=== PATIENT | female | born 1975 | race Caucasian/White ===

== ENCOUNTER 2018-05-06 17:02 | Emergency (ER) | payer SELFPAY ==
[2018-05-06 17:06] VITALS: BP 151/99; PULSE 101; RESP 18; TEMP 36.5; O2SAT 97
--- NOTE | 2018-05-06 17:48 | ED.GENADUL ---
Disposition Clinical Impression: Rash Disposition: HOME Instructions: Acute Rash (ED) Additional Instructions: Your blood glucose level was 150 today. This is slightly elevated and likely related to prednisone. Please be sure to discuss this with your doctor at your next visit. Continue to take prednisone as prescribed. Take benadryl 50mg every 8 hours as needed for itching. Please follow-up with your primary care physician. If rash persists, please follow-up with dermatology. Return to the emergency department immediately for any worsening or new concerning symptoms. Referrals: Eusebia Vaughn MD [Primary Care Provider] - Forms: Work Release Medical Decision Making - Medical Decision Making 18:00 --43-year-old female here with 4 days of itchy rash, migratory now involving thighs bilaterally arms and chest. Rash seemed to respond to steroid injection earlier today. Suspect allergic versus autoimmune. Fingerstick slightly elevated at 150 - likely related to steroid. Current exam rash not consistent with fungal process. Consider syphilis - pt did have std in remote past. Will send rpr. Plan to continue prednisone and Benadryl. History of Present Illness - General Chief complaint: Allergic Stated complaint: PER DEVEN Time Seen by Provider: 05/06/18 17:19 Source: patient, RN notes reviewed Mode of arrival: ambulatory Limitations: no limitations - History of Present Illness Initial comments: 43-year-old female presents with chief complaint of rash. Patient notes that she developed a rash on her buttocks 3 days ago. Rash progressed to her back, arms and thighs over the past few days. Rash is itchy. Rash seemed to start with boils and now more linear. She was seen by her primary care physician yesterday and diagnosed with tinea corporis and start an antifungal cream. Today she returned to her primary care physician with worsening rash. PCP was concerned that she had hives and treated her with Solu-Medrol injection and started her on prednisone. Patient notes rash improved significantly after injection. After few hours rash returned. No known exposures to any new allergens. Of note, patient was swimming in [place] 5 days ago. - Related Data Diphenhydramine HCl [Benadryl] 25 mg PO PRN 12/23/12 Fluticasone Propionate [Flovent 110MCG] 2 puff IH BID #1 inhaler 07/08/17 Montelukast Sodium [Singulair] 10 mg PO DAILY #90 tab-cap 07/08/17 Loratadine [Claritin] 10 mg PO DAILY PRN #90 tab 08/06/17 Omeprazole 20 mg PO DAILY #90 tab 09/19/17 Ibuprofen 800 mg PO TID PRN #90 tab-cap 01/21/18 Levalbuterol [Xopenex Hfa] 1 - 2 puff IH Q4H PRN #1 inhaler 03/28/18 Hydrochlorothiazide [Hydrodiuril] 25 mg PO DAILY #90 tab-cap 03/31/18 Losartan [Cozaar] 50 mg PO DAILY #90 tab-cap 03/31/18 Trazodone HCl 100 mg PO HS #30 tab-cap 03/31/18 Methylprednisolone Sod Succ/Pf [Solu-Medrol 40 mg Vial] 40 mg IJ ONCE #1 vial 05/06/18 Prednisone 0 PO DAILY #13 tab-cap 05/06/18 Allergies Allergy/AdvReac Type Severity Reaction Status Date / Time lisinopril AdvReac Mild Cough Unverified 05/06/18 17:14 albuterol AdvReac Unknown Panicky Unverified 05/06/18 17:14 meclizine AdvReac Unknown panics Unverified 05/06/18 17:14 Review of Systems Constitutional: denies: chills, fever ENT: other (lips and gums feel itchy; no throat discomfort or swelling) Respiratory: denies: shortness of breath, wheezing Gastrointestinal: denies: nausea, vomiting Musculoskeletal: denies: joint swelling, arthralgia Skin: as per HPI, rash Past Medical History - Past Medical History Medical history: asthma, GERD, hypertension - Social History Smoking status: never smoker General Exam - General Limitations: no limitations General appearance: alert, in no apparent distress - Eye Eye exam: Absent: scleral icterus, conjunctival injection - ENT ENT exam: Present: normal orophraynx, mucous membranes moist - Neck Neck exam: Absent: lymphadenopathy - Respiratory Respiratory exam: Present: normal lung sounds bilaterally - Cardiovascular Cardiovascular Exam: Present: regular rate, normal rhythm, normal heart sounds - Extremities Exam Extremities exam: Absent: joint swelling - Back Exam Back exam: Absent: rash noted - Neurological Exam Neurological exam: Present: alert. Absent: altered - Psychiatric Psychiatric exam: Present: normal affect - Skin Skin exam: Present: warm, dry, rash (fine, red, linear rash on upper medial arms, circular and linear patch upper inner thighs and upper chest) Course Vital Signs - 24 hr 05/06/18 17:06 Temperature 36.5 C Pulse 101 H Respiratory 18 Rate Blood Pressure 151/99 Pulse Oximetry 97
[2018-05-08 14:06] LABS: Syphilis Serology (RPR) Negative (Negative)
== END 2018-05-06 18:07 | disposition home or self-care (01) ==
PROVIDERS: Emergency Provider Student in an Organized Health Care Education/Training Program; PCP Internal Medicine
DX: R21 Rash and other nonspecific skin eruption (principal); I10 Essential (primary) hypertension
CPT/HCPCS: 36416; 82962; 99283; 86592

== ENCOUNTER 2018-07-11 17:40 | Outpatient (REF) | payer OTHER, SELFPAY ==
[2018-07-11 21:02] LABS: Abs Immature Grans 0.03 k/cumm (0.0-0.09); Absolute Basophil Count 0.02 k/cumm (0.0-0.2); Absolute Eosinophil Count 0.24 k/cumm (0.0-0.7); Absolute Lymphocyte Count 1.89 k/cumm (1.2-3.4); Absolute Monocyte Count 0.73 k/cumm (0.11-0.7); Absolute Neutrophil Count 6.21 k/cumm (1.2-6.7); Basophils % 0.2; Eosinophils % 2.6; HCT 39.4 % (36.0-46.0); HGB 12.4 g/dL (12.0-15.5); Immature Grans % 0.3; Lymphocytes % 20.7; Mean Corp. HGB Concentration 31.5 g/dL (32.0-36.0); Mean Corpuscular Volume 76.4 fL (80-95); Mean Platelet Volume 9.1 fL (8.0-11.0); Neutrophils % 68.2; Platelet Count 340 x1000/uL (130-400); RBC 5.16 m/cumm (4.00-5.20); RBC Distribution Width 16.8 % (11.7-14.6); White Blood Cell Count 9.12 k/cumm (4.4-10.8)
[2018-07-11 21:18] LABS: Iron 43 ug/dL (50-175); Total Iron Binding Capacity 457 ug/dL (250-450); Transferrin Sat 9 % (15-50)
[2018-07-11 22:05] LABS: ALT 28 U/L (12-78); AST 19 U/L (15-37); Albumin 3.9 g/dL (3.4-5.0); Alkaline Phosphatase 90 U/L (46-116); Anion Gap 8.8 mmol/L (3-11); BUN 11 mg/dL (7-18); Bilirubin, Total 0.4 mg/dL (0.2-1.0); CO2 27.2 mmol/L (21.0-32.0); CREATININE 0.71 mg/dL (0.55-1.02); Calcium 8.7 mg/dL (8.5-10.1); Chloride 101 mmol/L (98-107); Ferritin 22 ng/mL (8-388); Glucose 90 mg/dL (70-100); Sodium 137 mmol/L (136-145); Total Protein 7.5 g/dL (6.4-8.2)
== END 2018-07-11 18:00 ==
LOC: NCHCN 17:40
PROVIDERS: PCP Internal Medicine; Visit Provider Nurse Practitioner
DX: Z00.00 Encounter for general adult medical examination without abnormal findings (principal); Z13.228 Encounter for screening for other metabolic disorders; Z13.0 Encounter for screening for diseases of the blood and blood-forming organs and certain disorders involving the immune mechanism
CPT/HCPCS: 80053; 82728; 83540; 83550; 85025

== ENCOUNTER 2018-12-04 17:52 | Outpatient (REF) | payer BC, SELFPAY ==
[2018-12-04 22:04] LABS: Abs Immature Grans 0.05 k/cumm (0.0-0.09); Absolute Basophil Count 0.02 k/cumm (0.0-0.2); Absolute Eosinophil Count 0.23 k/cumm (0.0-0.7); Absolute Lymphocyte Count 1.95 k/cumm (1.2-3.4); Absolute Monocyte Count 0.65 k/cumm (0.11-0.7); Absolute Neutrophil Count 7.07 k/cumm (1.2-6.7); Basophils % 0.2; Eosinophils % 2.3; HCT 37.6 % (36.0-46.0); HGB 11.8 g/dL (12.0-15.5); Immature Grans % 0.5; Lymphocytes % 19.6; Mean Corp. HGB Concentration 31.4 g/dL (32.0-36.0); Mean Corpuscular Hemoglobin 25.6 pg (27.0-33.0); Mean Corpuscular Volume 81.6 fL (80-95); Monocytes % 6.5; Neutrophils % 70.9; Platelet Count 260 x1000/uL (130-400); RBC 4.61 m/cumm (4.00-5.20); RBC Distribution Width 15.9 % (11.7-14.6); White Blood Cell Count 9.97 k/cumm (4.4-10.8)
[2018-12-04 22:35] LABS: HCG Qual (Serum) Negative
[2018-12-05 16:56] LABS: Estradiol 105 pg/ml
[2018-12-08 10:55] LABS: Prolactin 10.2 ng/ml
[2018-12-08 12:07] LABS: FSH 9.2 mIU/ml
== END 2018-12-04 18:12 ==
LOC: NCHCN 17:52
PROVIDERS: PCP Internal Medicine; Visit Provider Nurse Practitioner
DX: N92.0 Excessive and frequent menstruation with regular cycle (principal)
CPT/HCPCS: 82670; 83001; 84146; 84443; 84703; 85025

== ENCOUNTER 2019-01-15 00:35 | Outpatient (CLI) | payer BC, SELFPAY ==
--- NOTE | 2019-01-15 07:42 | DI.US_ITS ---
SYMPTOM/DIAGNOSIS: MENORRHAGIA, ABNL UTERINE BLEEDING, N93.9, COMPARE UTERINE FIBROIDS TO 2017 PELVIC ULTRASOUND: Pelvic ultrasound was performed transabdominally and transvaginally. Please see accompanying data sheet for measurements of the pelvic structures. The myometrium is mildly heterogeneous in appearance with no focal mass. Endometrial stripe is about 5 mm. in thickness and appears fairly homogeneous. There is a tiny quantity of fluid in the endometrial cavity. There are a few nabothian cysts. Left ovary non visualized. Right ovary has a normal follicular appearance. No free fluid identified in the cul-de-sac. Limited scanning of the kidneys is unremarkable. CONCLUSION: Small quantity of fluid in endometrial cavity. Non visualized left ovary. The examination is otherwise unremarkable.
== END 2019-01-15 00:55 ==
PROVIDERS: PCP Internal Medicine; Visit Provider Obstetrics & Gynecology Gynecology
DX: N93.9 Abnormal uterine and vaginal bleeding, unspecified (principal); N92.0 Excessive and frequent menstruation with regular cycle
CPT/HCPCS: 76830; 76856

== ENCOUNTER 2019-01-15 11:45 | Outpatient (REF) | payer BC, SELFPAY ==
--- NOTE | 2019-01-15 09:00 | ENDOMET_PTH ---
PATIENT: Mary Seals LOC: [facility] U#:[id number] AGE/SX: 43/F ROOM: RE01/15/[address]: Juany Bergman : 1975 BED: DIS: 01/15/2019 SPEC #: [id number] RECD: 01/15/19 12:09 STATUS: BREANNA REWilian #: [id number] RUY: 01/15/19 09:[address]: Juany Bergman DEPT: Surgical Specimen RECD BY: Karla Murphy ENTERED: 01/15/19 12:09 SP TYPE: Endomet OTHR DR: Eusebia Vaughn MD Tissues: 1 - ENDOMETRIUM BX/ES Procedures: GROSS AND MICRO LEVEL 4 Comments: [id number]
== END 2019-01-15 12:05 ==
LOC: LBN 11:45
PROVIDERS: PCP Internal Medicine; Visit Provider Obstetrics & Gynecology Gynecology
DX: N93.8 Other specified abnormal uterine and vaginal bleeding (principal); N85.8 Other specified noninflammatory disorders of uterus
CPT/HCPCS: 88305

== ENCOUNTER 2019-02-10 09:08 | Outpatient (CLI) | payer BC, SELFPAY ==
[2019-02-10 10:10] LABS: HCT 38.2 % (36.0-46.0); HGB 12.2 g/dL (12.0-15.5); Mean Corp. HGB Concentration 31.9 g/dL (32.0-36.0); Mean Corpuscular Hemoglobin 26.4 pg (27.0-33.0); Mean Corpuscular Volume 82.7 fL (80-95); Mean Platelet Volume 8.7 fL (8.0-11.0); Platelet Count 258 x1000/uL (130-400); RBC 4.62 m/cumm (4.00-5.20); RBC Distribution Width 15.4 % (11.7-14.6)
[2019-02-10 11:09] LABS: Anion Gap 9.6 mmol/L (3-11); BUN 13 mg/dL (7-18); CO2 27.4 mmol/L (21.0-32.0); CREATININE 0.64 mg/dL (0.55-1.02); Calcium 8.7 mg/dL (8.5-10.1); Chloride 104 mmol/L (98-107); Glucose 105 mg/dL (70-100); Potassium 4.4 mmol/L (3.5-5.1); Sodium 141 mmol/L (136-145)
== END 2019-02-10 09:28 ==
PROVIDERS: PCP Nurse Practitioner Family; Visit Provider Obstetrics & Gynecology Gynecology
DX: N92.6 Irregular menstruation, unspecified (principal); Z01.818 Encounter for other preprocedural examination
CPT/HCPCS: 36415; 80048; 85027; 86850; 86900; 86901

== ENCOUNTER 2019-02-11 05:51 | Day surgery (SDC) | payer BC, SELFPAY ==
[2019-02-11 06:17] VITALS: BP 126/79; PULSE 89; RESP 18; TEMP 36.3; O2SAT 98
[2019-02-11] MEDS: Lactated Ringers 1,000 ML 80 ML IV (06:59)
[2019-02-11] MEDS: Albuterol/Ipratropium 3 ML UPD VIAL (07:25)
[2019-02-11] MEDS: Bupivacaine 0.25% Pres-Free 30 ML VIAL (08:00)
--- NOTE | 2019-02-11 09:00 | ENDOMET_PTH ---
PATIENT: Mary Seals LOC: [facility] U#:[id number] AGE/SX: 43/F ROOM: RE02/11/[address]: Juany Bergman : 1975 BED: DIS: 02/11/2019 SPEC #: [id number] RECD: 02/11/19 13:00 STATUS: BREANNA GARCIAS #: [id number] RUY: 02/11/19 09:[address]: Juany Bergman DEPT: Surgical Specimen RECD BY: Karla Murphy ENTERED: 02/11/19 13:01 SP TYPE: Endomet OTHR DR: Meron Chen Tissues: 1 - ENDOMETRIUM BX/SAYRAETTE Procedures: GROSS AND MICRO LEVEL 4 Comments: [id number]
[2019-02-11 09:18] VITALS: BP 144/77; PULSE 84; RESP 15; TEMP 36.7; O2SAT 16
[2019-02-11] MEDS: Droperidol 5 MG/2 ML VIAL (09:20)
[2019-02-11 09:23] VITALS: BP 157/91; PULSE 76; RESP 13; TEMP 36.7; O2SAT 16
[2019-02-11 09:28] VITALS: BP 146/83; PULSE 77; RESP 15; TEMP 36.7; O2SAT 14
[2019-02-11 10:10] VITALS: BP 123/81; PULSE 75; RESP 16; TEMP 36.2; O2SAT 97
--- NOTE | 2019-02-11 10:22 | W.PM.DSUDISC ---
Discharge Plan Disposition Patient Disposition: HOME Condition: Stable Discharge Details Reason For Visit: Attempted endometrial ablation Attending Provider: Juany Bergman Primary Care Provider: Meron Chen Home Meds and New Rx's Prescriptions: No Action High Potency Iron 27 mg iron tablet 27 mg PO DAILY RF: 0 diphenhydramine HCl [Benadryl] 25 MG capsule 25 mg PO PRN RF: 0 montelukast [Singulair] 10 MG tablet 10 mg PO DAILY Qty: 90 RF: 3 Flovent HFA 12 GM HFA aerosol inhaler 2 puff Inhalation BID Qty: 1 RF: 3 levalbuterol tartrate [Xopenex HFA] 15 GM HFA aerosol inhaler 1 - 2 puff Inhalation Q4H PRN Qty: 1 RF: 3 losartan 50 MG tablet 50 mg PO DAILY Qty: 90 RF: 6 loratadine 10 MG tablet 20 mg PO BID RF: 0 ranitidine HCl 150 MG tablet 150 mg PO BID RF: 0 Levocetirizine Dihydrochloride [Xyzal] 5 MG tablet 5 mg PO HS RF: 0 omeprazole 20 MG capsule,delayed release(DR/EC) 20 mg PO PRN PRNRF: 0 hydrochlorothiazide 25 MG tablet 25 mg PO DAILY PRNRF: 0 Discharge Instructions Stand Alone Forms: [facility] Post Gynecology Surgery, Kyler Tobin ([facility]) Activity:: Activity as Tolerated Diet:: As Tolerated Discharge Orders Discharge Orders: Discharge Order (Routine); Ordered 02/11/19 Ordered By: Juany Bergman
--- NOTE | 2019-02-11 10:32 | W.PM.OP ---
Date of service: 02/11/19 Time of Service: 10:40 Operative Note DATE OF PROCEDURE: 02/11/19 PRE-OP DIAGNOSIS: Abnormal uterine bleeding POST-OP DIAGNOSIS: same PROCEDURE: Attempted endometrial ablation SURGEON: Juany Bergman ANESTHESIA: CARLEE ESTIMATED BLOOD LOSS: 0 PATHOLOGY: other (Endometrial curettings to pathology) COMPLICATIONS: None Patient was transported to: PACU Patient's condition: stable Implants: none Indications: 43-year-old G0 female with a history of irregular heavy menses with associated dysmenorrhea but not amenable to medical therapy. Findings: Cervical length 2.5 cm cavity length 5.5 cm the NovaSure device would not deploy within the uterine cavity cavity with measured between 2 and 2.5 cm Procedure Description: Patient was taken to the operating room where she was placed in the dorsal supine position and general endotracheal anesthesia was administered without difficulty. She is placed in the dorsal lithotomy position in yellowfin stirrups prepped and draped in the usual sterile fashion. Surgical timeout was performed. SCDs in place and no antibiotics required. Attempt to using the HTA device was unsuccessful. We are unable to find the machine normal saline secondary to malfunction in the tubing. Placement tubing was available. Decision made to proceed with a NovaSure device. A bivalve speculum was placed in the vagina the anterior lip of the cervix was grasped with single-tooth tenaculum and the uterus was sounded with the above-noted findings. Cervix was dilated to a maximum of 8 Hegar and the NovaSure declined device was inserted into the uterine cavity to a depth of 5.5 cm. However the NovaSure coil could not be effectively opened despite numerous attempts to change the position of the coil within the uterine cavity. The uterine cavity would not allow for expansion of the coil past 2.5 cm. As result the procedure could not be carried out. NovaSure device was removed and a curettage of the endometrial cavities were warm with the banjo curette. Scant amount of tissue was returned. His visit remove the patient's vagina tenaculum site was hemostatic patient was placed in the dorsal supine position awakened, extubated, and transported to recovery area in stable condition
== END 2019-02-11 10:45 | disposition home or self-care (01) ==
PROVIDERS: PCP Nurse Practitioner Family; Visit Provider Obstetrics & Gynecology Gynecology
PROC: (CPT 58353; principal; 2019-02-11 07:30)
DX: N93.8 Other specified abnormal uterine and vaginal bleeding (principal); N92.0 Excessive and frequent menstruation with regular cycle; Z53.8 Procedure and treatment not carried out for other reasons; Y66 Nonadministration of surgical and medical care; Y83.8 Other surgical procedures as the cause of abnormal reaction of the patient, or of later complication, without mention of misadventure at the time of the procedure; Y76.1 Therapeutic (nonsurgical) and rehabilitative obstetric and gynecological devices associated with adverse incidents
CPT/HCPCS: 58120; 81025; 88305; J0131; J1100; J1790; J2405; J7620

== ENCOUNTER 2019-03-12 11:03 | Outpatient (REF) | payer BC, SELFPAY ==
[2019-03-12 13:05] LABS: HCT 40.5 % (36.0-46.0); HGB 12.8 g/dL (12.0-15.5); Mean Corp. HGB Concentration 31.6 g/dL (32.0-36.0); Mean Corpuscular Hemoglobin 26.2 pg (27.0-33.0); Mean Platelet Volume 9.6 fL (8.0-11.0); Platelet Count 252 x1000/uL (130-400); RBC 4.88 m/cumm (4.00-5.20); RBC Distribution Width 15.3 % (11.7-14.6)
[2019-03-12 13:18] LABS: Total Iron Binding Capacity 331 ug/dL (250-450)
[2019-03-12 13:52] LABS: Ferritin 46 ng/mL (8-388)
== END 2019-03-12 11:23 ==
LOC: NCHCN 11:03
PROVIDERS: PCP Nurse Practitioner Family; Visit Provider Nurse Practitioner Family
DX: D50.9 Iron deficiency anemia, unspecified (principal)
CPT/HCPCS: 85027; 82728; 83550

== ENCOUNTER 2019-04-16 12:32 | Outpatient (CLI) | payer BC, SELFPAY ==
--- NOTE | 2019-04-16 07:40 | DI.MAMMO_ITS ---
SYMPTOM/DIAGNOSIS: SCREENING, Z12.39 MAMMOGRAMS: Mammograms were interpreted according to the usual protocol including computer analysis with CAD system, tomosynthesis and C view imaging. The breast tissue is of moderate radiodensity. There is no evidence of a mass. There are no suspicious calcifications and there has been no significant interval change when compared with prior studies. SUMMARY: No evidence of malignancy. Category 1. Yearly screening mammography is recommended. Breast density category B. SA ASSESSMENT OF FINDINGS: Negative. Category 1. Patient will receive a letter notifying them of these results. BI-RADS category B. There are scattered areas of fibroglandular density.
== END 2019-04-16 12:52 ==
PROVIDERS: PCP Nurse Practitioner Family; Visit Provider Nurse Practitioner Family
DX: Z12.31 Encounter for screening mammogram for malignant neoplasm of breast (principal)
CPT/HCPCS: 77063; 77067

== ENCOUNTER 2020-12-02 16:01 | Outpatient (REF) | payer BC, SELFPAY ==
[2020-12-03 16:55] LABS: COVID-19 RT-PCR UVMMC Result Negative (Negative)
== END 2020-12-02 16:02 | disposition home or self-care (01) ==
LOC: NCHCN 16:01
PROVIDERS: PCP Nurse Practitioner Family; Visit Provider Nurse Practitioner Family
DX: Z20.822 Contact with and (suspected) exposure to COVID-19 (principal)
CPT/HCPCS: U0003

== ENCOUNTER 2020-12-05 10:49 | Outpatient (REF) | payer BC, SELFPAY ==
[2020-12-06 12:25] LABS: COVID-19 RT-PCR UVMMC Result Negative (Negative)
== END 2020-12-05 10:50 | disposition home or self-care (01) ==
LOC: NCHCN 10:49
PROVIDERS: PCP Nurse Practitioner Family; Visit Provider Nurse Practitioner Family
DX: Z20.822 Contact with and (suspected) exposure to COVID-19 (principal)
CPT/HCPCS: U0003

== ENCOUNTER 2021-01-13 14:40 | Outpatient (REF) | payer BC, SELFPAY ==
[2021-01-13 13:08] LABS: HGB 12.5 g/dL (11.2-15.7); MCHC 30.5 % (32.0-36.0); Platelet Count 327 10^3/uL (130-400); RDW 15.5 % (11.7-14.6); RDW-SD 45.9 fL; WBC 9.74 10^3/uL (4.4-10.8)
[2021-01-13 13:32] LABS: ALT 34 U/L (14-59); AST 21 U/L (15-37); Anion Gap 10.8 mmol/L (3-11); BUN 11 mg/dL (7-18); CO2 27.2 mmol/L (21.0-32.0); CREATININE 0.8 mg/dL (0.55-1.02); Calcium 9.1 mg/dL (8.5-10.1); Calculated LDL 90 mg/dL (<100); Chloride 105 mmol/L (98-107); Cholesterol 140 mg/dL (<200); Glucose 94 mg/dL (74-106); HDL Cholesterol 27 mg/dL (40-60); Potassium 3.9 mmol/L (3.5-5.1); Sodium 143 mmol/L (136-145); Triglyceride 116 mg/dL (<150)
== END 2021-01-13 14:41 | disposition home or self-care (01) ==
LOC: NCHCN 14:40
PROVIDERS: PCP Nurse Practitioner Family; Visit Provider Nurse Practitioner Family
DX: D50.9 Iron deficiency anemia, unspecified (principal); I10 Essential (primary) hypertension; Z00.00 Encounter for general adult medical examination without abnormal findings; E66.9 Obesity, unspecified
CPT/HCPCS: 80048; 80061; 85027; 84450; 84460

== ENCOUNTER 2021-01-20 03:31 | Outpatient (CLI) | payer BC, SELFPAY ==
--- NOTE | 2021-01-20 08:20 | DI.MAMMO_ITS ---
EXAM: MAMMO SCREENING CLINICAL HISTORY: SCREENING,Z12.39 TECHNIQUE: Mammograms were interpreted according to the usual protocol including computer analysis w [employer] CAD system, tomosynthesis and C-view imaging. COMPARISON: 2012 through 2018 FINDINGS: The breasts are composed of scattered fibroglandular densities, Breast Density category B. No suspicious masses or suspicious microcalcifications are seen. No skin thickening or abnormal axillary lymph nodes are seen. There has been no significant change from prior exams. IMPRESSION: BI-RADS Category 1, Negative mammogram Yearly screening mammography is recommended. Breast Density - Category B, scattered fibroglandular densities. A negative radiographic report should not delay biopsy if a dominant or clinically suspicious mass is present. Up to ten percent of cancers are not identified on mammography. A negative report may reinforce clinical impression. Adenosis and dense breasts may obscure an underlying neoplasm. False positive reports average 6 to 10%. Patient will receive a letter notifying them of these results.
== END 2021-01-20 03:51 ==
PROVIDERS: PCP Nurse Practitioner Family; Visit Provider Nurse Practitioner Family
DX: Z12.31 Encounter for screening mammogram for malignant neoplasm of breast (principal)
CPT/HCPCS: 77063; 77067

== ENCOUNTER 2021-07-18 13:06 | Outpatient (REF) | payer BC, SELFPAY ==
[2021-07-18 14:42] LABS: Abs Immature Grans 0.04 10^3/uL (0.0-0.06); Absolute Basophil Count 0.02 10^3/uL (0.0-0.2); Absolute Eosinophil Count 0.17 10^3/uL (0.0-0.7); Absolute Monocyte Count 0.68 10^3/uL (0.1-0.8); Absolute Neutrophil Count 7.17 10^3/uL (1.2-6.7); Basophils % 0.2; Eosinophils % 1.8; HCT 39.5 % (36.0-46.0); HGB 12.5 g/dL (11.2-15.7); Immature Grans % 0.4; Lymphocytes % 16.5; MCH 25.2 pg (27.0-33.0); MCHC 31.6 % (32.0-36.0); MCV 79.5 fL (80-95); Neutrophils % 74.1; Nucleated RBC 0 %; Platelet Count 281 10^3/uL (130-400); RBC 4.97 10^6/uL (3.93-5.22); RDW 15.9 % (11.7-14.6); RDW-SD 45.3 fL; WBC 9.68 10^3/uL (4.4-10.8)
[2021-07-18 14:59] LABS: Anion Gap 6.8 mmol/L (3-11); BUN 10 mg/dL (7-18); CO2 30.2 mmol/L (21.0-32.0); CREATININE 0.7 mg/dL (0.55-1.02); Calcium 8.8 mg/dL (8.5-10.1); Chloride 103 mmol/L (98-107); Glucose 92 mg/dL (74-106); Potassium 4.2 mmol/L (3.5-5.1); Sodium 140 mmol/L (136-145)
[2021-07-18 15:17] LABS: Iron 38 ug/dL (50-170); Total Iron Binding Capacity 358 ug/dL (250-450); Transferrin Sat 11 % (15-50)
[2021-07-19 11:13] LABS: Hepatitis C Ab w Rflx HCV PCR Negative (Negative)
[2021-07-19 11:49] LABS: HIV-1/2 Ag & Ab Screen Negative (Negative)
[2021-07-21 16:39] LABS: 1,25-Dihydroxyvitamin D 51 pg/mL (18-78)
== END 2021-07-18 13:07 | disposition home or self-care (01) ==
LOC: NCHCN 13:06
PROVIDERS: PCP Nurse Practitioner Family; Visit Provider Nurse Practitioner Family
DX: D50.9 Iron deficiency anemia, unspecified (principal); R53.83 Other fatigue; Z11.4 Encounter for screening for human immunodeficiency virus [HIV]; Z11.59 Encounter for screening for other viral diseases
CPT/HCPCS: 80048; 86803; 87389; 82652; 83540; 83550; 85025

== ENCOUNTER 2022-01-31 10:24 | Outpatient (REF) | payer BC, SELFPAY ==
--- NOTE | 2022-01-31 | PAPFT_PTH ---
PATIENT: Mary Seals LOC: [facility]#:[id number] AGE/SX: 46/F ROOM: RE01/31/[address]: Meron Chen : 1975 BED: DIS: 01/31/2022 SPEC #: [id number] RECD: 01/31/22 15:38 STATUS: BREANNA REWilian #: [id number] RUY: 01/31/22 00:[address]: Meron Chen DEPT: [facility] Cytology RECD BY: Windy Mo Tissues: 1 - CX/ENDOCX FOR PAP SMEARS Procedures: PAP THIN PREP/UVM Screening HPV DNA PROBE Comments: [id number] (CHLAMYDIA/GC)
[2022-02-01 10:55] LABS: HIV-1/2 Ag & Ab Screen Negative (Negative)
[2022-02-01 11:14] LABS: Hepatitis C Ab w Rflx HCV PCR Negative (Negative)
[2022-02-02 10:59] LABS: HSV Type 1 Ab, IgG Positive (Negative); HSV Type 2 Ab, IgG Positive (Negative)
[2022-02-02 16:37] LABS: Chlamydia Result Negative (Negative); GC Result Negative (Negative)
[2022-02-02 19:26] LABS: Syphilis IgG w/Reflex Nonreactive (Nonreactive)
== END 2022-01-31 10:25 | disposition home or self-care (01) ==
LOC: NCHCN 10:24
PROVIDERS: PCP Nurse Practitioner Family; Visit Provider Nurse Practitioner Family
DX: Z11.3 Encounter for screening for infections with a predominantly sexual mode of transmission (principal); Z11.4 Encounter for screening for human immunodeficiency virus [HIV]; Z11.59 Encounter for screening for other viral diseases; N86 Erosion and ectropion of cervix uteri; Z00.00 Encounter for general adult medical examination without abnormal findings; Z12.4 Encounter for screening for malignant neoplasm of cervix; Z01.419 Encounter for gynecological examination (general) (routine) without abnormal findings
CPT/HCPCS: 86803; 87389; 87491; 87591; 88142; 86695; 86696; 86780; 87624

== ENCOUNTER → 2022-05-03 02:02 | Outpatient (CLI) | payer BC, SELFPAY ==
--- NOTE | 2022-05-03 12:23 | DI.MAMMO_ITS ---
Exam(s) MAMMO SCREENING EXAM: MAMMO SCREENING CLINICAL HISTORY: SCREENING, Z12.39 TECHNIQUE: Mammograms were interpreted according to the usual protocol including computer analysis w [employer] CAD system, tomosynthesis and C-view imaging. COMPARISON: 2012 through 2020 FINDINGS: The breasts are composed of mainly fatty density , Breast Density category A. No suspicious masses or suspicious microcalcifications are seen. No skin thickening or abnormal axillary lymph nodes are seen. There has been no significant change from prior exams. IMPRESSION: BI-RADS Category 1, Negative mammogram Yearly screening mammography is recommended. Breast Density - Category A, fatty density. A negative radiographic report should not delay biopsy if a dominant or clinically suspicious mass is present. Up to ten percent of cancers are not identified on mammography. A negative report may reinforce clinical impression. Adenosis and dense breasts may obscure an underlying neoplasm. False positive reports average 6 to 10%. Patient will receive a letter notifying them of these results.
== END ==
PROVIDERS: PCP Nurse Practitioner Family; Visit Provider Nurse Practitioner Family
DX: Z12.31 Encounter for screening mammogram for malignant neoplasm of breast (principal)
CPT/HCPCS: 77063; 77067

== ENCOUNTER 2022-06-28 20:42 | Outpatient (REF) | payer BC, SELFPAY ==
[2022-06-28 18:23] LABS: HCT 38.8 % (36.0-46.0); HGB 12.2 g/dL (11.2-15.7); MCH 24.4 pg (27.0-33.0); MCHC 31.4 % (32.0-36.0); MCV 77 fL (80-95); Platelet Count 311 10^3/uL (130-400); RBC 5.01 10^6/uL (3.93-5.22); RDW 16.1 % (11.7-14.6); RDW-SD 43.9 fL; WBC 9.85 10^3/uL (4.4-10.8)
[2022-06-28 18:33] LABS: ALT 23 U/L (14-59); AST 18 U/L (15-37); Albumin 3.9 g/dL (3.4-5.0); Alkaline Phosphatase 81 U/L (46-116); Anion Gap 9.3 mmol/L (3-11); BUN 13 mg/dL (7-18); Bilirubin, Total 0.3 mg/dL (0.2-1.0); CO2 28.7 mmol/L (21.0-32.0); CREATININE 0.9 mg/dL (0.55-1.02); Calcium 9.3 mg/dL (8.5-10.1); Chloride 100 mmol/L (98-107); Estimated GFR 79.35 (mL/min/1.73m2); Glucose 110 mg/dL (74-106); Potassium 4.1 mmol/L (3.5-5.1); Sodium 138 mmol/L (136-145); Total Protein 7.6 g/dL (6.4-8.2)
[2022-06-29 16:38] LABS: Total Iron Binding Capacity 384 ug/dL (250-450)
== END 2022-06-28 20:43 | disposition home or self-care (01) ==
LOC: NCHCN 20:42
PROVIDERS: PCP Nurse Practitioner Family; Visit Provider Nurse Practitioner Family
DX: I10 Essential (primary) hypertension (principal); E66.9 Obesity, unspecified
CPT/HCPCS: 80053; 85027; 83550

== ENCOUNTER 2023-09-11 13:32 | Outpatient (REF) | payer BC, SELFPAY ==
[2023-09-11 16:17] LABS: HCT 39.9 % (36.0-46.0); HGB 12.6 g/dL (11.2-15.7); MCH 25.3 pg (27.0-33.0); MCHC 31.6 % (32.0-36.0); MCV 80 fL (80-95); MPV 8.8 fL (8.0-11.0); Platelet Count 321 10^3/uL (130-400); RBC 4.99 10^6/uL (3.93-5.22); RDW 15.8 % (11.7-14.6); RDW-SD 45.1 fL; WBC 9.99 10^3/uL (4.4-10.8)
[2023-09-11 16:24] LABS: Iron 34 ug/dL (50-170); Total Iron Binding Capacity 370 ug/dL (250-450); Transferrin Sat 9 % (15-50)
[2023-09-11 16:38] LABS: ALT 27 U/L (14-59); AST 27 U/L (15-37); Albumin 3.7 g/dL (3.4-5.0); Alkaline Phosphatase 84 U/L (46-116); Anion Gap 9.8 mmol/L (3-11); BUN 11 mg/dL (7-18); Bilirubin, Total 0.4 mg/dL (0.2-1.0); CO2 29.2 mmol/L (21.0-32.0); CREATININE 0.8 mg/dL (0.55-1.02); Calcium 9.2 mg/dL (8.5-10.1); Calculated LDL 101 mg/dL (<100); Chloride 98 mmol/L (98-107); Cholesterol 172 mg/dL (<200); Estimated GFR 90.83 (mL/min/1.73m2); Ferritin 61 ng/mL (8-252); Glucose 127 mg/dL (74-106); HDL Cholesterol 38 mg/dL (40-60); Potassium 3.9 mmol/L (3.5-5.1); Sodium 137 mmol/L (136-145); Total Protein 7.7 g/dL (6.4-8.2); Triglyceride 167 mg/dL (<150)
== END 2023-09-11 13:33 | disposition home or self-care (01) ==
LOC: NCHCN 13:32
PROVIDERS: PCP Nurse Practitioner Family; Visit Provider Nurse Practitioner Family
DX: Z00.00 Encounter for general adult medical examination without abnormal findings (principal); D50.9 Iron deficiency anemia, unspecified; I10 Essential (primary) hypertension; Z13.220 Encounter for screening for lipoid disorders
CPT/HCPCS: 80053; 80061; 85027; 82728; 83540; 83550

== ENCOUNTER → 2023-10-16 01:40 | Outpatient (CLI) | payer BC, SELFPAY ==
--- NOTE | 2023-10-16 | DI.MAMMO_ITS ---
Exam(s) MAMMO SCREENING EXAM: MAMMO SCREENING CLINICAL HISTORY: SCREENING, Z12.31. TECHNIQUE: Bilateral full field digital CC and MLO mammographic images were obtained with 3D tomosyn thesis and utilizing computer aided detection (CAD). COMPARISON: Prior mammograms were reviewed. FINDINGS: Asymmetric tissue seen anteromedially in the right breast is unchanged from prior mammograms. No new right breast findings. Asymmetric densities seen anteriorly in the left breast are also unchanged from prior mammograms. No new significant left breast findings. There are no new spiculated masses nor malignant appearing microcalcification groups. There is no significant architectural distortion nor skin thickening-retraction. IMPRESSION: No radiographic evidence of malignancy. Stable benign-appearing findings. Category: Breast Density - Category B - Scattered areas of fibroglandular density Breast density Category C or D implies that the patient has dense breast tissue. Dense breast tissue can make it harder to find cancer on a mammogram. Dense breast tissue is also associated with an incr eased risk of breast cancer. This information about the result of the mammogram report was provided to the patient to raise their awareness. Use this report when you speak with the patient about their risks for breast cancer, which includes their family history. At that time, you may recommend additional screening tests (Ultrasoun d or MRI) as these tests may add significant information. A negative radiographic report should not delay biopsy if a dominant or clinically suspicious mass is present. Up to ten percent of cancers are not identified on mammography. A negative report may reinforce clinical impression. Adenosis and dense breasts may obscure an underlying neoplasm. False positive reports average 6 to 10%. Patient will receive a letter notifying them of these results.
== END ==
PROVIDERS: PCP Nurse Practitioner Family; Visit Provider Nurse Practitioner Family
DX: Z12.31 Encounter for screening mammogram for malignant neoplasm of breast (principal)
CPT/HCPCS: 77063; 77067